=== PATIENT | male | born 1990 | race Caucasian/White ===

== ENCOUNTER 2025-07-13 18:22 | Emergency (ER) | payer OTHER, SELFPAY ==
[2025-07-13 18:36] VITALS: BP 141/87; PULSE 75; RESP 17; TEMP 36.3; O2SAT 100; BMI 42.0
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
--- NOTE | 2025-07-13 19:21 | PC.NURSE ---
the patient was triaged and assessed by another nurse and the MD. The provider order imaging. Patient states he feels ok other than his neck and head. Will continue to monitor.
[2025-07-13 19:50] VITALS: PULSE 73; RESP 11
[2025-07-13 20:00] VITALS: BP 132/79; PULSE 76; RESP 7; O2SAT 96
[2025-07-13 20:45] VITALS: BP 133/85; PULSE 85; RESP 18; O2SAT 99
== END 2025-07-13 20:45 | disposition home or self-care (01) ==
PROVIDERS: Emergency Provider Emergency Medicine
DX: S06.0X0A Concussion without loss of consciousness, initial encounter (principal); S16.1XXA Strain of muscle, fascia and tendon at neck level, initial encounter; V43.52XA Car driver injured in collision with other type car in traffic accident, initial encounter; Y92.410 Unspecified street and highway as the place of occurrence of the external cause; Y99.0 Civilian activity done for income or pay
CPT/HCPCS: 70450; 72125; 99281; 99284